=== PATIENT | male | born 2000 | race Caucasian/White ===

== ENCOUNTER 2018-06-26 01:07 | Emergency (ER) | payer OTHER ==
[~2018-06-26] VITALS: Ht 165.1 cm; Wt 65.9 kg
[2018-06-26] MEDS ORDERED: PERTUSS(ACELL),DIPH,TET VAC/PF 0.5 ML VIAL IM ONE (02:15)
[2018-06-26 03:34] VITALS: BP 123/65
== END 2018-06-26 03:49 | disposition home or self-care (01) ==
LOC: EMS 01:08
DX: S01.01XA Laceration without foreign body of scalp, initial encounter (principal); J45.909 Unspecified asthma, uncomplicated; Y04.0XXA Assault by unarmed brawl or fight, initial encounter; Y93.89 Activity, other specified; Y92.89 Other specified places as the place of occurrence of the external cause; Y99.8 Other external cause status
CPT/HCPCS: 12002; 90471; 90715